=== PATIENT | female | born 2000 | race African-American/Black ===

== ENCOUNTER 2022-05-12 00:50 | Emergency (ER) | payer MEDICAID, SELFPAY ==
[2022-05-12] VITALS (11 sets, daily range): BP systolic 124–149; BP diastolic 66–118; PULSE 73–79; RESP 15–18; TEMP 36.2–36.7; O2SAT 98–100; BMI 29.0
--- NOTE | 2022-05-12 01:07 | EKG12_ITS ---
Test Reason : Blood Pressure : / mmHG Vent. Rate : 073 BPM Atrial Rate : 073 BPM P-R Int : 136 ms QRS Dur : 084 ms QT Int : 374 ms P-R-T Axes : 066 059 036 degrees QTc Int : 412 ms Normal sinus rhythm Normal ECG Confirmed by JARRED RANGEL, ERIC ([id number]), book editor DMITRIY MENDEZ ([id number]) on 05/13/2022 10:10:13 AM Referred By: Confirmed By:ERIC STERN MD
--- NOTE | 2022-05-12 01:08 | EDS_ITS ---
HPI HPI - Psych History of Present Illness Chief Complaint: Suicidal Informant: patient Narrative Narrative: 21-year-old female presenting to the emergency department with suicidal thoughts. Patient contacted the suicide hotline stating that she had intentions of overdosing. She states that she is from [place] and is a college [place] student. She also works nights at [employer]. She states that she is having difficulty coping with the stress of school work and bills. She was seen a counselor up until about 2 months ago. She states that she was prescribed hydroxyzine and that was what she planned on overdosing with. Police were contacted who brought her to the department. She notes that she has struggled with insomnia since middle school. She reports that she drinks 4-5 alcoholic beverages per day in an effort to cope with her anxiety. [facility] Medical History Anxiety Depression Hypertension Home Medications NK 05/12/22 [History Last Taken Unknown] Allergy/AdvReac Type Severity Reaction Status Date / Time No Known Allergies Allergy Verified 05/12/22 00:55 Surgical History [place] teeth removed Social History (Updated 05/12/22 @ 01:[address] Rajendra Singh DO) Smoking Status: Never smoker alcohol intake: current alcohol intake frequency: 3 or more drinks per day ROS ROS ED Constitutional Constitutional ED: Denies chills or weight loss Eyes Eyes: Denies change in vision or diplopia ENT ENT ED: Denies ear pain, rhinorrhea or sore throat Cardiovascular Cardiovascular: Denies chest pain, orthopnea, palpitations or racing heartbeat Respiratory/Chest Respiratory/Chest: Denies cough, dyspnea or orthopnea Gastrointestinal Gastrointestinal: Denies abdominal pain, diarrhea, nausea or vomiting Genitourinary Genitourinary ED: Denies dysuria, hematuria or urinary frequency Musculoskeletal Musculoskeletal: Denies arthralgias or myalgias Integumentary Denies abscess or rash Neurologic Neurologic: Denies headache(s) or weakness Psychiatric Psychiatric: Reports anxiety, depression, suicidal ideation and suicidal thought s Endocrine Endocrinology: Denies polydipsia, polyphagia or polyuria Allergic/Immunologic Allergic/Immunologic ED: Denies mouth swelling, tongue swelling or urticaria EXAM Physical Exam Const Vital Signs: 05/12/22 00:53 05/12/22 01:02 05/12/22 02:47 Temperature 98.1 F Temperature Source Temporal Pulse Rate 78 Respiratory Rate 16 18 16 Blood Pressure 149/118 H Blood Pressure Mean 128 Pulse Ox 99 Oxygen Delivery Method Room Air Room Air Room Air Positive well nourished and well developed General Appearance ED: well developed HEENT Reports normocephalic, head/scalp atraumatic and moist mucous membranes Eyes PERRL and EOMs intact bilaterally Neck no lymphadenopathy, supple and no JVD Resp normal respiratory effort and clear to auscultation bilaterally Cardio regular rate, regular rhythm and no murmurs GI normal to inspection, nondistended, normoactive bowel sounds and non-tender Palpation: soft Back/Spine no CVA tenderness and normal ROM Extremity normal to inspection General Extremety ED: Negative for edema General Extremity: Negative for edema Neuro oriented x3 and CN's II-XII intact bilaterally Sensorium / Orientation: alert Motor Exam: strength 5/5 throughout Psych mental status grossly normal Appearance: grossly normal Attitude: withdrawn Activity / Motor Behavior: avoids eye contact Speech: minimal and soft Mood & Affect: depressed, sad and tearful Thought Process: normal thought process Thought Content: suicidality Attention / Concentration: attention grossly intact Memory / Cognition: memory grossly intact Skin no rashes or lesions noted and no wounds MDM MDM MDM Narrative Medical decision making narrative: Basic blood work was obtained and essentially negative. Toxicology work-up is difficult for a alcohol level of 79. Patient's COVID test is negative. Patient is medically cleared for psychiatric assessment. Crisis is in agreement with me that the patient would benefit from psychiatric admission. Lab Data Attestation: I reviewed the patient's lab results. Labs: Laboratory Results - last 24 hr 05/12/22 05/12/22 05/12/22 01:10 01:10 01:10 WBC 3.5 L RBC 4.87 Hgb 11.3 L Hct 36.2 L MCV 74.3 L MCH 23.2 L MCHC 31.2 L RDW Std Deviation 36.9 RDW Coeff of Rick 14.0 Plt Count 263 MPV 9.9 Immature Gran % (Auto) 0.300 Neut % (Auto) 31.0 L Lymph % (Auto) 57.1 H [place] % (Auto) 8.1 Eos % (Auto) 2.6 Baso % (Auto) 0.9 Absolute Neuts (auto) 1.1 L Absolute Lymphs (auto) 1.97 Nucleated RBC % 0 Sodium Potassium Chloride Carbon Dioxide Anion Gap BUN Creatinine Estim Creat Clear Calc Est GFR (MDRD) Af Amer Est GFR (MDRD) Non-Af BUN/Creatinine Ratio Glucose Calcium Total Bilirubin AST ALT Alkaline Phosphatase Total Protein Albumin Globulin Albumin/Globulin Ratio Serum , Qual NEGATIVE Urine Opiates Screen Urine Methadone Screen Ur Barbiturates Screen Ur Phencyclidine Scrn Ur Amphetamines Screen MDMA (Ecstasy) Screen U Benzodiazepines Scrn Urine Cocaine Screen U Cannabinoids Screen Ur Drug Screen Comment Ethyl Alcohol 79.0 05/12/22 05/12/22 01:10 01:15 WBC RBC Hgb Hct MCV MCH MCHC RDW Std Deviation RDW Coeff of Rick Plt Count MPV Immature Gran % (Auto) Neut % (Auto) Lymph % (Auto) [place] % (Auto) Eos % (Auto) Baso % (Auto) Absolute Neuts (auto) Absolute Lymphs (auto) Nucleated RBC % Sodium 139 Potassium 3.7 Chloride 106 Carbon Dioxide 26.0 Anion Gap 7 BUN 11 Creatinine 0.83 Estim Creat Clear Calc 93.36 Est GFR (MDRD) Af Amer 113 Est GFR (MDRD) Non-Af 93 BUN/Creatinine Ratio 13.3 Glucose 120 H Calcium 8.9 Total Bilirubin 0.30 AST 18 ALT 16 Alkaline Phosphatase 66 Total Protein 7.6 Albumin 3.8 Globulin 3.8 Albumin/Globulin Ratio 1.0 Serum , Qual Urine Opiates Screen NEGATIVE Urine Methadone Screen NEGATIVE Ur Barbiturates Screen NEGATIVE Ur Phencyclidine Scrn NEGATIVE Ur Amphetamines Screen NEGATIVE MDMA (Ecstasy) Screen NEGATIVE U Benzodiazepines Scrn NEGATIVE Urine Cocaine Screen NEGATIVE U Cannabinoids Screen NEGATIVE Ur Drug Screen Comment Ethyl Alcohol EKG Initial EKG: Attestation: I personally reviewed and interpreted this EKG as follows: Comments: Normal sinus then ventricular rate of 73 bpm Discharge Plan Triage Chief Complaint: Suicidal ED Provider: Rajendra Singh Dx/Rx/DC Orders Clinical Impression: Depression, Anxiety, Suicidal ideation Prescriptions: No Action NK Primary Care Provider: Care Physician,No Primary
[2022-05-12 01:26] LABS: Absolute Lymphocyte Count 1.97 X10^3/uL (0.83-4.51); Absolute Neutrophil Count 1.1 X10^3/uL (2.0-7.7); Basophil# 0.03 X10^3/uL; Basophil% 0.9 % (0-1); Eosinophil# 0.09 X10^3/uL; Eosinophils% 2.6 % (0-5); Hematocrit 36.2 % (37-47); Hemoglobin 11.3 g/dL (12.0-15.0); Lymphocyte # 1.97 X10^3/ul (0.83-4.51); Lymphocyte % 57.1 % (19-41); Mean Corp Hgb Conc 31.2 g/dL (32-36); Mean Corpuscular Hgb 23.2 pg (27.0-32.0); Mean Corpuscular Volume 74.3 fL (81-99); Mean Platelet Vol. 9.9 fl (6.2-12.0); Monocyte# 0.28 X10^3/uL; Monocyte% 8.1 % (0-10); NRBC Flagged by Analyzer 0 % (0-5); Neutrophil # 1.07 X10^3/uL (2.7-7.7); Platelet Count 263 K/mm3 (150-450); RBC Distribution Width SD 36.9 fl (35.1-43.9); Red Blood Count 4.87 M/mm3 (4.2-5.4); White Blood Count 3.5 K/mm3 (4.4-11.0)
[2022-05-12 01:34] LABS: Internal QC Validated? YES +Cl - CLEAR BKGD; Pregnancy, Serum, hCG Quali. NEGATIVE Negative
[2022-05-12 01:38] LABS: Amphetamine Urine VISTA NEGATIVE (<1000 ng/mL); Barbiturate Urine VISTA NEGATIVE (< 200 ng/mL); Benzodiazepine Urine VISTA NEGATIVE (< 200 ng/mL); Cocaine Urine VISTA NEGATIVE (< 300 ng/mL); Ecstacy Urine VISTA NEGATIVE (< 500 ng/mL); Methadone Urine VISTA NEGATIVE (< 300 ng/mL); PCP Urine VISTA NEGATIVE (< 25 ng/mL); THC Urine VISTA NEGATIVE (< 50 ng/mL); Vista UDS pH Range 6
[2022-05-12 01:42] LABS: AST(SGOT) 18 U/L (15-37); Alanine Aminotransfer ALT/SGPT 16 U/L (13-56); Albumin, Serum 3.8 g/dL (3.2-5.0); Alkaline Phosphatase 66 U/L (45-117); Anion Gap 7 (5-15); BUN 11 mg/dL (7-18); BUN/Creat Ratio 13.3 RATIO (10-20); Calcium,Total 8.9 mg/dL (8.5-10.1); Chloride 106 mmol/L (98-107); Creatinine, Serum 0.83 mg/dL (0.55-1.02); EST Glomerular Filtration Rate 93 mL/min (>60); Est Glom Filt Rate - Afr Amer 113 mL/min (>60); Estimated Creatinine Clearance 93.36 ml/min; Globulin 3.8 g/dL (2.2-4.2); Glucose 120 mg/dL (74-106); Potassium 3.7 mmol/L (3.5-5.1); Protein, Total 7.6 g/dL (6.4-8.2); Sodium Level 139 mmol/L (136-145)
[2022-05-12] MEDS: Acetaminophen 325 MG Tablet 650 MG PO (10:45)
--- NOTE | 2022-05-12 12:03 | CM.ED ---
Addendum entered by Jacquelin Vinson 05/12/22 12:24: NORMA called Addis at [facility]. She advised that we would need to do the precert and ask if [facility] is in network. NORMA called Patricia at [facility]. They cannot accept. Addendum entered by Jacquelin Vinson 05/12/22 12:16: NORMA called [facility] spoke to Brii. Brii said that the only medicaid that they accept is [place]. Jacquelin SAINZ Original Note: NORMA Note NORMA called Alisia at [facility]. She said that patient has [facility] and thus [place] [facility] [place]. She recommended [facility]. SW spoke to patient. She inquired about financial assistance for her not working while in treatment. NORMA advised that patient could apply for Combat Stroke benefits. NORMA called [facility] and reviewed the situation. They will review the referral packet. NORMA faxed the referral packet to the [facility]. NORMA called [facility]. They can not take patient's out of state [facility] but could do single case agreement. Plan: Inpatient psych
--- NOTE | 2022-05-12 14:28 | ED.RN ---
Pt. requested to speak with Jacquelin from Social work. Jacquelin notified and will be down to see her. Meal tray ordered for patient.
--- NOTE | 2022-05-12 15:36 | NURSING ---
PHYSICIANS CALLED. ETA OF 183.
--- NOTE | 2022-05-12 15:48 | CM.ED ---
[facility] called and stated they could accept patient. NORMA called [facility] and advised that patient has the community plan out of [place]. NORMA received call from [facility] declining patient. NORMA received call from Lucy at [facility] ([place], [place]). Patient accepted needed the pink slip and also covid screen. Lucy said that the pink slip can not have another hospital name on it and must HAVE only their name on it. SW will fax information to [facility]. NORMA faxed requested documentation to [facility]. NORMA received call from Trina who said that patient was accepted by Dr. Tyrone Lemus in the Dual Unit and room 108A. RN to RN [phone]. SW updated patient that she was accepted at [facility] ([place], [place]). SW had also provided her with information on people to people and [place] Medicaid application. Patient said that she has no sick leave benefits as she works, for over a year, through a [employer] agency. Patient has no sick leave benefits. Patient inquired about how to fill out medicaid regarding household members and this typewriter ribbon winder said to contact [facility]. Patient also inquired about who could watch her cat while she went away. SW asked her about her RA and she didn't think he would.SW asked about friends and patient said no. NORMA advised that the only agency that this typewriter ribbon winder is aware of is the [employer] or [employer]. Plan: [facility] Jacquelin SAINZ
--- NOTE | 2022-05-12 17:20 | ED.RN ---
THIS RN CALLED REPORT TO [facility] IN [place], [place]. THIS RN GAVE PT REPORT TO BRO LITTLE AT [phone].
--- NOTE | 2022-05-12 20:02 | CM.ED ---
LUIS ALBERTO Interim Kiln Repairer Home Manager Susy Swain contacted this account underwriter due to LUIS ALBERTO student being in ED and Susy reported that phone lines were down. SW asked patient if she gave consent for me to update Susy Swain and patient gave verbal consent for this account underwriter to speak with her. SW provided update to Susy Swain. SW gave contact information to Susy Swain if additonal information is needed. Plan: Goldy SAINZ
--- NOTE | 2022-05-13 18:42 | CM.ED ---
Susy Swain, interim weatherization director called for an update regarding patient. NORMA advised of placement at [facility] for continuity of care. Jacquelin SAINZ
== END 2022-05-12 17:27 ==
PROVIDERS: Emergency Provider Emergency Medicine; Visit Provider Emergency Medicine
DX: R45.851 Suicidal ideations (principal); F41.9 Anxiety disorder, unspecified; Z55.8 Other problems related to education and literacy; I10 Essential (primary) hypertension; G47.00 Insomnia, unspecified; F32.A Depression, unspecified
CPT/HCPCS: 80053; 80307; 82077; 84703; 85025; 87811; 93005; 99284